=== PATIENT | female | born 1960 | race Caucasian/White ===

== ENCOUNTER 2020-05-25 10:47 | Inpatient (IN) | payer SELFPAY ==
--- NOTE | 2020-05-25 14:43 | RAD REPORT ---
EXAM DESCRIPTION: RAD - Chest Single View - 05/25/2020 2:16 pm CLINICAL HISTORY: CONGESTION COMPARISON: Portable May 2011 TECHNIQUE: AP portable chest image was obtained 05/25/2020 2:16 pm . FINDINGS: Chronic interstitial pattern similar to comparison. Calcified granulomas are stable. Overl stacia soft tissues cause costophrenic angle blunting. Heart and vasculature are normal. No measurable pleural effusion and no pneumothorax. No acute bony abnormality seen. No acute aortic findings suspec priscilla. IMPRESSION: No acute cardiopulmonary process. Chronic interstitial pattern matches comparison.
[2020-05-25 15:08] LABS: Sodium Level 140 mmol/L (136-145); Troponin (Emerg Dept Use Only) < 0.02 ng/mL (0.0-0.045)
--- NOTE | 2020-05-25 16:00 | RAD REPORT ---
EXAM DESCRIPTION: CT - Abdomen Pelvis Wo Contrast - 05/25/2020 3:34 pm CLINICAL HISTORY: ABD PAIN COMPARISON: CT ABD PELVIS W CONTRAST dated 06/08/2011 TECHNIQUE: Axial [address] imaging of the abdomen and pelvis was performed without IV contrast. No IV contrast was given because of allergy, abnormal renal function, patient refusal or physician re quest. No oral contrast given. All CT scans are performed using dose optimization technique as appropriate and may include automated exposure control or mA/KV adjustment according to patient size. FINDINGS: No suspicious findings in the lung bases. There is been a marked change to the abdomen since the the far remote 2011 study. Liver has a promine nt, lobulated capsule contour. No focal liver lesion identified. Spleen has enlarged. There are no fo jennie splenic lesions identifiable. Gallbladder is distended. No gallstones seen though stones can be o ccult. There is no dilatation of the biliary tree. No pancreatic mass or peripancreatic acute finding . No evaluation can be made of the portal vein on a noncontrast study. No hydronephrosis or suspicious renal mass. No significant adrenal finding. Isodense renal masses an d pyelonephritis cannot be excluded in the absence of IV contrast. Urinary bladder is tightly contrac priscilla limiting assessment. Normal sized uterus for age. There is air density in the vaginal wall near the cervix. A few punctate air densities are present localizing to the anterior uterus near the endometrium -myometrium interfa ce. No gastric dilatation or wall thickening. No dilated large or small bowel loops. There are several sm all bowel loops that show wall thickening or edema is believed to be part of the liver dysfunction. M ultiple paraesophageal varices are present. No free intraperitoneal air and no pneumatosis. Moderate ascites is present in the abdomen. There is a congestion and edematous appearance to all the peritoneal fat and subcutaneous fatty tissues. No ma ss or bulky lymphadenopathy. Minimal periumbilical hernia present. Disc and bony degenerative changes are present. Dense vascular calcifications are present. Infrarenal aorta is dilated to 3.1 cm. No displaced calcifications. IMPRESSION: Cirrhotic liver changes with splenomegaly, moderate ascites and multiple abdominal varic es. No abnormal stool volume. Several small bowel loops show wall thickening that is probably a systemic response to the liver disease. Patient has focal air density in the deep vaginal vault near the cervix and a few punctate air densit ies within the uterus. Source of the air is uncertain. Patient may have incompetent cervix and this i s physiologic air via the vaginal vault. No history to indicate an acute uterine infectious process. No evidence for cervical or uterine malignancy. Infrarenal abdominal aortic aneurysm to 3.1 cm in diameter.
--- NOTE | 2020-05-25 17:09 | ER ---
Nurse's Notes [facility] Name: Tania Aguirre Age: 59 yrs Sex: Female : 1960 Arrival Date: 05/25/2020 Time: 10:48 Bed 26 Private MD: Diagnosis: Acute kidney failure;Other and unspecified cirrhosis of liver Presentation: 05/25 11:26 Chief complaint: Patient states: my heart feels like something is pinching it and iw sometimes it feels something is pushing it for past week, stomach became distended 2 weeks ago, hx of pancreatitis and hiatal hernia, no vomiting, can't pee or poop for past two weeks, only going a little at time, also has leg swelling in left leg X 2 weeks. Initial Sepsis Screen: Does the patient meet any 2 criteria? No. Patient's initial sepsis screen is negative. Does the patient have a suspected source of infection? No. Patient's initial sepsis screen is negative. Risk Assessment: Do you want to hurt yourself or someone else? Patient reports no desire to harm self or others. 11:26 Method Of Arrival: Ambulatory iw 11:26 Acuity: NAHID 2 iw 11:30 Coronavirus screen: At this time, the client does not indicate any symptoms associated iw with coronavirus-19. Ebola Screen: Patient negative for fever greater than or equal to 101.5 degrees Fahrenheit, and additional compatible Ebola Virus Disease symptoms Patient denies exposure to infectious person. Patient denies travel to an Ebola-affected area in the 21 days before illness onset. No symptoms or risks identified at this time. Onset of symptoms was May 10, 2020. Historical: - Allergies: 11:30 No Known Allergies; iw - Home Meds: 11:30 None [Active]; iw - PMHx: 11:30 chronic bronchitis; 6 lesions on lungs; iw - PSHx: 11:30 None; iw - Immunization history:: Adult Immunizations not up to date. - Social history:: Smoking status: Patient reports the use of cigarette tobacco products, smokes one-half pack cigarettes per day. - Family history:: not pertinent. Screenin:17 Abuse screen: Denies threats or abuse. Denies injuries from another. Abuse screen:. zb Nutritional screening: No deficits noted. Tuberculosis screening: No symptoms or risk factors identified. Fall Risk None identified. Assessment: 12:30 General: Appears uncomfortable, Behavior is calm, cooperative, appropriate for age, zb Reports feeling ill for > 3 days, fatigue for >3 days. Pain: Complains of pain in abdomen Pain does not radiate. Pain began 1 mth ago. Neuro: Level of Consciousness is awake, alert, obeys commands, Oriented to person, place, time, situation. Cardiovascular: Reports nausea, shortness of breath, Heart tones S1 S2 Murmur present Capillary refill < 3 seconds in bilateral fingers Patient's skin is warm and dry. Pulses are all present. Edema is 3+ to left ankle, left foot, left toes, right ankle, right foot and right toes pitting to left midcalf, left ankle, left foot, left toes, right midcalf, right ankle, right foot and right toes. Respiratory: Reports shortness of breath at rest on exertion cough that is hacking, persistent Airway is patent Respiratory effort is even, unlabored, Respiratory pattern is regular, symmetrical, Breath sounds with rhonchi bilaterally. Breath sounds with wheezes bilaterally. Onset: The symptoms/episode began/occurred at an unknown time. the patient has moderate shortness of breath. GI: Abdomen is round distended, noted to have ascites, Stools are reported to be loose, Bowel sounds present X 4 quads. hyperactive in right upper quadrant, left upper quadrant, right lower quadrant and left lower quadrant Reports lower abdominal pain, upper abdominal pain, bloating. : Reports inability to void, urgency, urinary frequency. EENT: No signs and/or symptoms were reported regarding the EENT system. Derm: Skin is intact, Skin is dry, Skin is normal, Skin temperature is warm. Musculoskeletal: Circulation, motion, and sensation intact. Range of motion: intact in all extremities. 13:30 Reassessment: Patient appears in no apparent distress at this time. Patient and/or zb family updated on plan of care and expected duration. Pain level reassessed. Patient is alert, oriented x 3, equal unlabored respirations, skin warm/dry/pink. pt waiting IV for c-scan. patient has a cough but is up ad jf. 14:30 Reassessment: Patient appears in no apparent distress at this time. Patient and/or zb family updated on plan of care and expected duration. Pain level reassessed. Patient is alert, oriented x 3, equal unlabored respirations, skin warm/dry/pink. pt lying in bed awaiting results. 15:30 Reassessment: Patient appears in no apparent distress at this time. Patient and/or zb family updated on plan of care and expected duration. Pain level reassessed. Patient is alert, oriented x 3, equal unlabored respirations, skin warm/dry/pink. no changes at this time. patient reposition. 16:18 Reassessment: patient ambulated to restroom. zb 17:00 Reassessment: Patient appears in no apparent distress at this time. Patient and/or zb family updated on plan of care and expected duration. Pain level reassessed. pt c/o pain in ovaries. notified PCP. medication given. 18:00 Reassessment: Patient appears in no apparent distress at this time. Patient and/or zb family updated on plan of care and expected duration. Pain level reassessed. discussed plan of care w/ patient. 19:00 Reassessment: Patient appears in no apparent distress at this time. Patient and/or zb family updated on plan of care and expected duration. Pain level reassessed. Patient is alert, oriented x 3, equal unlabored respirations, skin warm/dry/pink. 20:00 Reassessment: Patient appears in no apparent distress at this time. Patient and/or zb family updated on plan of care and expected duration. Pain level reassessed. Patient is alert, oriented x 3, equal unlabored respirations, skin warm/dry/pink. 21:00 Reassessment: Patient appears in no apparent distress at this time. Patient and/or zb family updated on plan of care and expected duration. Pain level reassessed. Patient is alert, oriented x 3, equal unlabored respirations, skin warm/dry/pink. pt given food. Vital Signs: 11:30 BP 173 / 62; Pulse 87; Resp 20; Temp 98.7; Pulse Ox 95% on R/A; Weight 102.06 kg; iw Height 5 ft. 7 in. (170.18 cm); Pain 7/10; 12:30 BP 164 / 70; Pulse 83; Resp 20; Pulse Ox 93% on R/A; zb 13:00 BP 132 / 80; Pulse 83; Resp 21; Pulse Ox 92% on R/A; zb 14:00 BP 161 / 69; Pulse 74; Resp 20; Pulse Ox 96% on 2 lpm NC; zb 15:00 BP 163 / 65; Pulse 73; Resp 22; Pulse Ox 97% on 2 lpm NC; zb 16:00 BP 166 / 67; Pulse 82; Resp 20; Pulse Ox 94% on 2 lpm NC; zb 17:00 BP 143 / 55; Pulse 83; Resp 20; Pulse Ox 100% on 2 lpm NC; zb 18:00 BP 153 / 59; Pulse 79; Resp 20; Pulse Ox 96% on 2 lpm NC; zb 19:00 BP 148 / 69; Pulse 75; Resp 20; Pulse Ox 96% 2 lpm ; zb 20:00 BP 136 / 56; Pulse 72; Resp 21; Pulse Ox 95% on 2 lpm NC; zb 21:00 BP 166 / 88; Pulse 89; Resp 16; Pulse Ox 98% on 2 lpm NC; zb 11:30 Body Mass Index 35.24 (102.06 kg, 170.18 cm) iw ED Course: 10:48 Patient arrived in ED. as 11:28 Triage completed. iw 11:30 Arm band placed on. iw 12:30 Komal Negrete MD is Attending Physician. ma2 12:37 Oumou Astudillo RN is Primary Nurse. zb 12:45 Missed attempt(s): 22 gauge in left antecubital area. Oxygen administration via nasal zb cannula \T\ 2L/min. 14:16 XRAY Chest (1 view) In Process Unspecified. EDMS 14:17 Patient has correct armband on for positive identification. bankruptcy attorney on. Pulse zb ox on. NIBP on. 14:35 Initial lab(s) drawn, by md, sent to lab. Inserted saline lock: 22 gauge in right aa5 antecubital area, using aseptic technique. Blood collected. 15:33 Abdomen In Process Unspecified. EDMS 17:08 Gabriele Orellana MD is Hospitalizing Provider. ma2 21:39 No provider procedures requiring assistance completed. Patient admitted, IV remains in zb place. Administered Medications: 17:35 Drug: [place] (7.5 mg-325 mg) 1 tabs Route: PO; zb 18:56 Follow up: Response: No adverse reaction; Pain is decreased; RASS: Alert and Calm (0) zb Outcome: 17:08 Decision to Hospitalize by Provider. ma2 21:39 Admitted to Med/surg accompanied by tech, room 210, with oxygen, with chart, Report zb called to [facility] [place] 21:39 Condition: stable 21:39 Instructed on the need for admit. 21:59 Patient left the ED. zb Signatures: Dispatcher [employer] Milka Gordon Irene, RN RN iw Calderon, Audri, RN RN aa5 Komal Negrete MD MD ma2 Oumou Astudillo RN RN zb
--- NOTE | 2020-05-25 17:09 | EDPHYS ---
Physician Documentation [facility] Name: Tania Aguirre Age: 59 yrs Sex: Female : 1960 Arrival Date: 05/25/2020 Time: 10:48 Bed 26 Private MD: ED Physician Komal Negrete HPI: 05/25 15:48 This 59 yrs old Female presents to ER via Ambulatory with complaints of Chest ma2 Pressure, Abdominal Swelling, Headache, Constipation. 15:48 The patient or guardian reports chest pain that is located primarily in the substernal ma2 area. Onset: gradually, 2 week(s) ago. Associated signs and symptoms: Pertinent negatives: diaphoresis, headache, lower extremity swelling, nausea. Severity of pain: At its worst the pain was moderate in the emergency department the pain is unchanged. The patient has not experienced similar symptoms in the past. Historical: - Allergies: 11:30 No Known Allergies; iw - Home Meds: 11:30 None [Active]; iw - PMHx: 11:30 chronic bronchitis; 6 lesions on lungs; iw - PSHx: 11:30 None; iw - Immunization history:: Adult Immunizations not up to date. - Social history:: Smoking status: Patient reports the use of cigarette tobacco products, smokes one-half pack cigarettes per day. - Family history:: not pertinent. ROS: 15:48 Constitutional: Negative for fever, chills, and weight loss. ma2 15:48 Abdomen/GI: Positive for constipation, abd swelling. 15:48 All other systems are negative. Exam: 15:48 Constitutional: This is a well developed, well nourished patient who is awake, alert, ma2 and in no acute distress. ENT: Nares patent. No nasal discharge, no septal abnormalities noted. Tympanic membranes are normal and external auditory canals are clear. Oropharynx with no redness, swelling, or masses, exudates, or evidence of obstruction, uvula midline. Mucous membranes moist. Neck: Trachea midline, no thyromegaly or masses palpated, and no cervical lymphadenopathy. Supple, full range of motion without nuchal rigidity, or vertebral point tenderness. No Meningismus. Chest/axilla: Normal chest wall appearance and motion. Nontender with no deformity. No lesions are appreciated. Cardiovascular: Regular rate and rhythm with a normal S1 and S2. No gallops, murmurs, or rubs. Normal PMI, no JVD. No pulse deficits. Respiratory: Lungs have equal breath sounds bilaterally, clear to auscultation and percussion. No rales, rhonchi or wheezes noted. No increased work of breathing, no retractions or nasal flaring. Abdomen/GI: abd is destended, yet soft, non-tender, with normal bowel sounds. No tympany. No guarding or rebound. No evidence of tenderness throughout. Skin: Warm, dry with normal turgor. Normal color with no rashes, no lesions, and no evidence of cellulitis. MS/ Extremity: Pulses equal, no cyanosis. Neurovascular intact. Full, normal range of motion. Neuro: Awake and alert, GCS 15, oriented to person, place, time, and situation. Cranial nerves II-XII grossly intact. Motor strength 5/5 in all extremities. Sensory grossly intact. Cerebellar exam normal. Normal gait. Psych: Awake, alert, with orientation to person, place and time. Behavior, mood, and affect are within normal limits. Vital Signs: 11:30 BP 173 / 62; Pulse 87; Resp 20; Temp 98.7; Pulse Ox 95% on R/A; Weight 102.06 kg; iw Height 5 ft. 7 in. (170.18 cm); Pain 7/10; 12:30 BP 164 / 70; Pulse 83; Resp 20; Pulse Ox 93% on R/A; zb 13:00 BP 132 / 80; Pulse 83; Resp 21; Pulse Ox 92% on R/A; zb 14:00 BP 161 / 69; Pulse 74; Resp 20; Pulse Ox 96% on 2 lpm NC; zb 15:00 BP 163 / 65; Pulse 73; Resp 22; Pulse Ox 97% on 2 lpm NC; zb 16:00 BP 166 / 67; Pulse 82; Resp 20; Pulse Ox 94% on 2 lpm NC; zb 17:00 BP 143 / 55; Pulse 83; Resp 20; Pulse Ox 100% on 2 lpm NC; zb 18:00 BP 153 / 59; Pulse 79; Resp 20; Pulse Ox 96% on 2 lpm NC; zb 19:00 BP 148 / 69; Pulse 75; Resp 20; Pulse Ox 96% 2 lpm ; zb 20:00 BP 136 / 56; Pulse 72; Resp 21; Pulse Ox 95% on 2 lpm NC; zb 21:00 BP 166 / 88; Pulse 89; Resp 16; Pulse Ox 98% on 2 lpm NC; zb 11:30 Body Mass Index 35.24 (102.06 kg, 170.18 cm) iw MDM: 12:31 Patient medically screened. nc2 15:48 Differential diagnosis: abnormal EKG, congestive heart failure gastroesophageal reflux nc2 disease (GERD), pancreatitis. 17:06 The patient was not given aspirin in the Emergency Department. Data reviewed: vital [facility] signs, nurses notes, diagnostic data from outside facility. Counseling: I had a detailed discussion with the patient and/or guardian regarding: the historical points, exam findings, and any diagnostic results supporting the discharge/admit diagnosis, the presence of at least one elevated blood pressure reading (>120/80) during this emergency department visit, the need for further work-up and treatment in the hospital. 05/25 12:33 Order name: Basic Metabolic Panel [facility] 05/25 12:33 Order name: CBC with Diff [facility] 05/25 12:33 Order name: LFT's [facility] 05/25 12:33 Order name: Magnesium [facility] 05/25 12:33 Order name: NT PRO-BNP [facility] 05/25 12:33 Order name: PT-INR [facility] 05/25 12:33 Order name: XRAY Chest (1 view); Complete Time: 16:41 [facility] 05/25 12:33 Order name: Lipase [facility] 05/25 12:44 Order name: Troponin (Emerg Dept Use Only) [facility] 05/25 15:17 Order name: Abdomen ; Complete Time: 16:41 [facility] 05/25 17:26 Order name: COVID-19 : Document "Date of Symptom Onset" if Symptomatic. 05/25 20:51 Order name: SARS-COV-2 RT PCR [facility] 05/25 12:33 Order name: EKG; Complete Time: 12:42 [facility] 05/25 12:33 Order name: Cardiac monitoring; Complete Time: 14:39 [facility] 05/25 12:33 Order name: EKG - Nurse/Tech; Complete Time: 13:28 [facility] 05/25 12:33 Order name: IV Saline Lock; Complete Time: 14:00 [facility] 05/25 12:33 Order name: Labs collected and sent; Complete Time: 14:00 [facility] 05/25 12:33 Order name: O2 Per Protocol; Complete Time: 14:39 [facility] 05/25 12:33 Order name: O2 Sat Monitoring; Complete Time: 14:39 [facility] 05/25 17:16 Order name: [place]; Complete Time: 18:57 [facility] 05/25 17:18 Order name: CONS Physician Consult [facility]CO Administered Medications: 17:35 Drug: [place] (7.5 mg-325 mg) 1 tabs Route: PO; zb 18:56 Follow up: Response: No adverse reaction; Pain is decreased; RASS: Alert and Calm (0) zb Disposition: 05/25/20 17:08 Hospitalization ordered by Gabriele Orellana for Inpatient Admission. Preliminary diagnosis are Acute kidney failure, Other and unspecified cirrhosis of liver. - Bed requested for Telemetry/MedSurg (Inpatient). - Status is Inpatient Admission. zb - Condition is Stable. - Problem is new. - Symptoms are unchanged. Signatures: Dispatcher [employer] [facility] Maria Luisa Gates RN RN dw Williams, Irene, RN RN iw Alzahri, Mohammad, MD MD [facility] Oumou Astudillo RN RN zb Corrections: (The following items were deleted from the chart) 15:17 12:42 Abdomen Pelvis W Con+CT.RAD.BRZ ordered. [facility] 21:06 17:08 Hospitalization Ordered by Gabriele Orellana MD for Inpatient Admission. Preliminary dw diagnosis is Acute kidney failure; Other and unspecified cirrhosis of liver. Bed requested for Telemetry/MedSurg (Inpatient). Status is Inpatient Admission. Condition is Stable. Problem is new. Symptoms are unchanged. ma2 21:59 21:06 05/25/2020 17:08 Hospitalization Ordered by Gabriele Orellana MD for Inpatient zb Admission. Preliminary diagnosis is Acute kidney failure; Other and unspecified cirrhosis of liver. Bed requested for Telemetry/MedSurg (Inpatient). Status is Inpatient Admission. Condition is Stable. Problem is new. Symptoms are unchanged. dw
--- NOTE | 2020-05-25 17:39 | P.HP ---
Certification for Inpatient Patient admitted to: Inpatient With expected LOS: >2 Midnights Practitioner: I am a practitioner with admitting privileges, knowledge of patient current condition, hospital course, and medical plan of care. Services: Services provided to patient in accordance with Admission requirements found in Title 42 Section 412.3 of the Code of Federal Regulations Patient History Date of Service: 05/25/20 Reason for admission: Acute renal failure, ascites History of Present Illness: 59yo F, PMH: HTN who presents to the ED the with few weeks of progressive wor sening abdominal swelling, lower extremity swelling, and decreased urine output. The patient denies any other past medical history, but has not seen a physician in many years. The she also reports several months of some chest pressure when lying flat, causing her to sleep on her side/slightly at an incline. The she reports minimal urine output, states that she did not fill the urine specimen ke pt within 1 day. She denies any fevers, no foul smell/ordered her urine, no blood. The she also reports she had 2 weeks of vaginal/uterine bleeding approximately 3-4 weeks ago, requiring ~3 regular pads / day. Before that, her LMP was ~10yrs ago. Has been having "ovary pain" described as pelvic cramping pains similar to when she would get her periods. Workup in ED notable for platelets 160, creatinine 3.4, INR: 0.97, BNP: 55286, negative troponin, lipase: 67. CXR: Negative for acute process. CT abdomen/pelvis: The new finding of cirrhotic liver changes with splenomegaly, moderate ascites, multiple abdominal varices. Several small bowel loops show wall thickening no surprise systemic response of liver disease. Focal air density in the vaginal vault and cervix and a few punctate care densities within the uterus. Allergies No Known Allergies Allergy (Unverified 06/08/11 11:57) Home Medications: None 06/08/11 Pantoprazole Sodium [Protonix] 40 mg PO BID #0 tablet. 06/10/11 - Past Medical/Surgical History -: HTN Past Surgical History: Patient denies surgical history - Family History Family History: Reviewed- Non-Contributory - Social History Smoking Status: Current every day smoker Alcohol use: No CD- Drugs: No Caffeine use: Yes Place of Residence: Home Review of Systems 10-point ROS is otherwise unremarkable Physical Examination - Studies Laboratory Data (last 24 hrs) 05/25/20 14:30: PT 11.4, INR 0.97 05/25/20 14:30: WBC 5.90, Hgb 12.9, Hct 39.4, Plt Count 160 05/25/20 14:30: Sodium 140, Potassium 4.3, BUN 56 H, Creatinine 3.42 H, Glucose 109 H, Magnesium 2.1, Total Bilirubin 0.4, AST 22, ALT 17, Alkaline Phosphatase 118 H, Lipase 67 L Assessment and Plan - Advance Directives Does patient have a Living Will: No Does patient have a Durable POA for Healthcare: No Physician Review Additional Text: Physical Exam Gen: NAD, laying on side HEENT: very mild scleral icterus CV: RRR, no murmur/rub Pulm: diminished air bilaterally, b/l expiratory wheeze, on RA Abd: soft, distended, +ascites, nontender Ext: 2+ edema bilaterally, no tenderness Neuro: AAOx3, str 5/5 bilateral upper/lower extremities Problem List: Acute renal failure Liver Cirrhosis Ascites Lower extremity edema Uterine/Vaginal bleed elevated BNP HTN -very low UOP over past 2-3 weeks -new Ascites / cirrhosis findings, concern for hepatorenal syndrome -no GI director of manufacturing operations -consult nephrology for acute renal failure -will obtain U/S for further eval - liver / pelvic -ordered paracentesis for tomorrow, LDH, glucose, cytology, Gram stain/culture -patient afebrile, no abdominal pain, do not suspect SBP at this time VTE: SCDs for now, recent bleed, low platelets, cirrhosis Code: full Dispo: anticipate dc home in 48-72hrs pending further evaluation / improvement Time Spent Managing Pts Care (In Minutes): 70
[2020-05-25 17:44] LABS: Protime INR 1.64; RBC Red Blood Cell Count 4.07 M/uL (3.86-4.86)
[2020-05-25 17:45] LABS: Absolute Lymphocytes (CBC) 1.3 K/uL (0.7-4.9); Basophils % 0.7 % (0-1.3); Hematocrit 39.5 % (36.0-45.0); Lymphocytes % 14.8 % (15.3-44.8); MPV 8.4 fL (7.6-11.3)
[2020-05-25] MEDS ORDERED: HYDROCODONE/APAP 7.5/325 MG TAB ONE (17:45)
[2020-05-25 17:59] LABS: Potassium 3.7 mmol/L (3.5-5.1)
[2020-05-25 18:00] LABS: ALT/SGPT 52 U/L (12-78); AST/SGOT 113 U/L (15-37); Alkaline Phosphatase 175 U/L (45-117); BUN Blood Urea Nitrogen 8 mg/dL (7-18); Bicarbonate 28 mmol/L (21-32); Bilirubin Direct 1.7 mg/dL (0-0.2); Bilirubin Total 3.2 mg/dL (0.2-1.0); Glucose Level 87 mg/dL (74-106); Protein, Total 7.9 g/dL (6.4-8.2)
[2020-05-25 18:01] LABS: Albumin 2.2 g/dL (3.4-5.0); Lipase 98 U/L (73-393); NT PRO-BNP 219 pg/mL (<125)
[2020-05-25 22:08] VITALS: BMI 37.2
[2020-05-25 23:14] LABS: Thyroid Stimulating Hormone 1.88 uIU/mL (0.360-3.740)
[2020-05-26 01:14] LABS: Urine Appearance CLEAR; Urine Blood 2+ (NEG); Urine Color ORANGE; Urine Glucose NEGATIVE (NEG); Urine Protein 1+ (NEG); Urine Specific Gravity >=1.030 (1.005-1.030)
[2020-05-26 01:32] LABS: Urine Microscopic Reflex ORDER UMIC
[2020-05-26 01:58] LABS: Urine Bilirubin 1+ (NEG)
[2020-05-26 02:42] LABS: Urine Bacteria <20 /HPF (<20); Urine Mucus 2+ /HPF (NONE SEEN); Urine RBC >50 /HPF (NONE SEEN); Urine Urothelial Cells <5 /HPF (NONE SEEN)
[2020-05-26 05:48] LABS: Absolute Lymphocytes (CBC) 1.2 K/uL (0.7-4.9); Lymphocytes % 15.7 % (15.3-44.8); MPV 8.2 fL (7.6-11.3); RBC Red Blood Cell Count 3.67 M/uL (3.86-4.86)
[2020-05-26 06:03] LABS: Protime INR 1.69
[2020-05-26 06:04] LABS: ALT/SGPT 46 U/L (12-78); AST/SGOT 94 U/L (15-37); Alkaline Phosphatase 162 U/L (45-117); BUN Blood Urea Nitrogen 10 mg/dL (7-18); Bicarbonate 28 mmol/L (21-32); Glucose Level 85 mg/dL (74-106); HDL Cholesterol 26 mg/dL (40-60); LDL Cholesterol, Calculated 106 (<130); Phosphorus 3.5 mg/dL (2.5-4.9); Potassium 3.5 mmol/L (3.5-5.1); Protein, Total 7.1 g/dL (6.4-8.2); Sodium Level 140 mmol/L (136-145)
--- NOTE | 2020-05-26 08:17 | P.CNS ---
Date of Consult: 05/26/20 Reason for Consult: Oliguria Requesting Physician: Gabriele Orellana Chief Complaint: Acute renal failure, ascites History of Present Illness: 59yo F, PMH: HTN who presents to the ED the with few weeks of progressive worsening abdominal swelling, lower extremity swelling, and decreased urine output. The patient denies any other past medical history, but has not seen a physician in many years. The she also reports several months of some chest pressure when lying flat, causing her to sleep on her side/slightly at an incline. The she reports minimal urine output, states that she did not fill the urine specimen kept within 1 day. She denies any fevers, no foul smell/ordered her urine, no blood. The she also reports she had 2 weeks of vaginal/uterine bleeding approximately 3-4 weeks ago, requiring ~3 regular pads / day. Before that, her LMP was ~10yrs ago. Has been having "ovary pain" described as pelvic cramping pains similar to when she would get her periods. 15:48 This 59 yrs old Female presents to ER via Ambulatory with complaints of Chest ma2 Pressure, Abdominal Swelling, Headache, Constipation. 15:48 The patient or guardian reports chest pain that is located primarily in the substernal ma2 area. Onset: gradually, 2 week(s) ago. Associated signs and symptoms: Pertinent negatives: diaphoresis, headache, lower extremity swelling, nausea. Severity of pain: At its worst the pain was moderate in the emergency department the pain is unchanged. The patient has not experienced similar symptoms in the past. Allergies No Known Allergies Allergy (Verified 05/25/20 22:08) Home medications list reviewed: Yes Home Medications: NK [No Home Meds] 05/25/20 - Past Medical/Surgical History Diabetic: No -: HTN -: chronic bronchitis -: none - Social History Smoking Status: Current every day smoker Alcohol use: No CD- Drugs: No Caffeine use: Yes Place of Residence: Home Review of Systems 10-point ROS is otherwise unremarkable General: Weakness, Malaise Respiratory: SOB with Excertion Cardiovascular: Edema Neurological: Weakness Physical Examination Temp Pulse Resp BP Pulse Ox 98.1 F 83 16 134/61 92 05/26/20 04:00 05/26/20 04:00 05/26/20 04:00 05/26/20 04:00 05/26/20 04:00 General: In no apparent distress, Oriented x3, Cooperative HEENT: Atraumatic Neck: Supple Respiratory: Diminished Cardiovascular: Regular rate/rhythm, Edema Gastrointestinal: No guarding, Distended Musculoskeletal: No clubbing Integumentary: No rashes, No cyanosis Neurological: Normal speech Laboratory Data (last 24 hrs) 05/25/20 14:30: PT 19.4 H, INR 1.64 05/25/20 14:30: WBC 8.70, Hgb 13.1, Hct 39.5, Plt Count 126 L 05/25/20 14:30: Sodium 140, Potassium 3.7, BUN 8, Creatinine 0.40 L, Glucose 87, Magnesium 2.0, Total Bilirubin 3.2 H, AST 113 H, ALT 52, Alkaline Phosphatase 175 H, Lipase 98 Imagings Data: EXAM DESCRIPTION: CT - Abdomen Pelvis Wo Contrast - 05/25/2020 3:34 pm CLINICAL HISTORY: ABD PAIN COMPARISON: CT ABD PELVIS W CONTRAST dated 06/08/2011 TECHNIQUE: Axial [address] imaging of the abdomen and pelvis was performed without IV contrast. No IV contrast was given because of allergy, abnormal renal function, patient refusal or physician request. No oral contrast given. All CT scans are performed using dose optimization technique as appropriate and may include automated exposure control or mA/KV adjustment according to patient size. FINDINGS: No suspicious findings in the lung bases. There is been a marked change to the abdomen since the the far remote 2011 study. Liver has a prominent, lobulated capsule contour. No focal liver lesion identified. Spleen has enlarged. There are no focal splenic lesions identifiable. Gallbladder is distended. No gallstones seen though stones can be occult. There is no dilatation of the biliary tree. No pancreatic mass or peripancreatic acute finding. No evaluation can be made of the portal vein on a noncontrast study. No hydronephrosis or suspicious renal mass. No significant adrenal finding. Isodense renal masses and pyelonephritis cannot be excluded in the absence of IV contrast. Urinary bladder is tightly contracted limiting assessment. Normal sized uterus for age. There is air density in the vaginal wall near the cervix. A few punctate air densities are present localizing to the anterior uterus near the endometrium -myometrium interface. No gastric dilatation or wall thickening. No dilated large or small bowel loops. There are several small bowel loops that show wall thickening or edema is believed to be part of the liver dysfunction. 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 No free intraperitoneal air and no pneumatosis. Moderate ascites is present in the abdomen. There is a congestion and edematous appearance to all the peritoneal fat and subcutaneous fatty tissues. No mass or bulky lymphadenopathy. Minimal periumbilical hernia present. Disc and bony degenerative changes are present. Dense vascular calcifications are present. Infrarenal aorta is dilated to 3.1 cm. No displaced calcifications. IMPRESSION: Cirrhotic liver changes with splenomegaly, moderate ascites and multiple abdominal varices. No abnormal stool volume. Several small bowel loops show wall thickening that is probably a systemic response to the liver disease. Patient has focal air density in the deep vaginal vault near the cervix and a few punctate air densities within the uterus. Source of the air is uncertain. Patient may have incompetent cervix and this is physiologic air via the vaginal vault. No history to indicate an acute uterine infectious process. No evidence for cervical or uterine malignancy. Infrarenal abdominal aortic aneurysm to 3.1 cm in diameter. EXAM DESCRIPTION: RAD - Chest Single View - 05/25/2020 2:16 pm CLINICAL HISTORY: CONGESTION COMPARISON: Portable May 2011 TECHNIQUE: AP portable chest image was obtained 05/25/2020 2:16 pm . FINDINGS: Chronic interstitial pattern similar to comparison. Calcified granulomas are stable. Overlying soft tissues cause costophrenic angle blunting. Heart and vasculature are normal. No measurable pleural effusion and no pneumothorax. No acute bony abnormality seen. No acute aortic findings suspected. IMPRESSION: No acute cardiopulmonary process. Chronic interstitial pattern matches comparison. Conclusions/Impression: A/ Oliguria Proteinuria Hematuria Hypokalemia Hypocalcemia HTN LE Edema Moderate malnutrition Liver cirrhosis with ascites P/ Continue the current POC and Medications. Start furosemide 20 IV q6h. Start spironolactone 25mg BID. IV Albumin as needed for hypotension. Give oral potassium. Start Vitamin D. Consider Lactulose as needed. Continue vaughn catheter. No NSAIDs. AM labs. Daily weight. Thank you kindly for the consultation. Case reviewed with Dr. Orellana
[2020-05-26] MEDS ORDERED: POTASSIUM CL SA 10 MEQ TAB PO ONE (08:25)
[2020-05-26] MEDS: CEFTRIAXONE/SWI 1gm 1 GM/10 ML SYR IV SCH (08:54)
[2020-05-26] MEDS ORDERED: INFLUENZA VACCINE (for 3y+) 0.5 ML DOSE IMVAC ONE (09:00)
--- NOTE | 2020-05-26 10:57 | P.PN ---
Subjective Date of Service: 05/26/20 Chief Complaint: edema, ascites Subjective: Improving (swelling slightly improved, breathing unchanged, no longer having "ovary pain") Review of Systems 10-point ROS is otherwise unremarkable Physical Examination - Vital Signs Temperature: 98.6 F Blood Pressure: 138/64 Pulse: 82 Respirations: 20 Pulse Ox (%): 90 - Studies Laboratory Data (last 24 hrs) 05/25/20 14:30: PT 19.4 H, INR 1.64 05/25/20 14:30: WBC 8.70, Hgb 13.1, Hct 39.5, Plt Count 126 L 05/25/20 14:30: Sodium 140, Potassium 3.7, BUN 8, Creatinine 0.40 L, Glucose 87, Magnesium 2.0, Total Bilirubin 3.2 H, AST 113 H, ALT 52, Alkaline Phosphatase 175 H, Lipase 98 Assessment & Plan Physician Review Additional Text: Physical Exam Gen: NAD HEENT: mild scleral icterus CV: RRR, no murmur/rub Pulm: diminished air bilaterally, b/l expiratory wheeze, on RA, +nonproductive cough Abd: soft, distended, +ascites, nontender Ext: 1-2+ edema bilaterally to thighgs, no tenderness Neuro: AAOx3, str 5/5 bilateral upper/lower extremities Problem List: Oliguria UTI Liver Cirrhosis with ascites Lower extremity edema Uterine/Vaginal bleed acute COPD exacerbation HTN -apparently labs yesterday were incorrectly labeled, and were fixed. Cr was 0.4, not 3.4 yesterday -having oliguria, vaughn placed for strict I/O's, only with 180ml overnight; nephrology consulted -urine concerning for UTI, started rocephin -new Ascites / cirrhosis findings, concern for hepatitis (remote history of IV drug use), pt denies alcohol use; hepatitis panel ordered. -U/S for further eval - liver / pelvic -unable to get paracentesis today, reported not enough fluid -patient afebrile, no abdominal pain, do not suspect SBP at this time -patient continues with wheeze, cough, and shortness of breath, but doing ok on RA. no formal diagnosis, but consistent with mild, acute COPD exacerbation, will start steroids VTE: SCDs for now, recent bleed, low platelets, cirrhosis Code: full Dispo: anticipate dc home in 24hrs pending further evaluation / improvement Time Spent Managing Pts Care (In Minutes): 35
[2020-05-26] MEDS: VITAMIN D 5,000 UNIT CAP PO SCH (11:05)
[2020-05-26] MEDS: METHYLPREDNISOLONE 40 MG INJ IV SCH ×2 (11:05→20:52)
[2020-05-26] MEDS: SPIRONOLACTONE 25 MG TABLET PO SCH ×2 (11:06→20:52)
[2020-05-26] MEDS: CALCITROL 0.25 MCG CAP PO SCH (11:06)
[2020-05-26] MEDS: FUROSEMIDE 20 MG/ 2ML VIAL IV SCH ×3 (11:06→20:51)
[2020-05-26] MEDS ORDERED: ALBUTEROL 2.5 MG/3 ML NEB SOL NEB PRN (11:07)
--- NOTE | 2020-05-26 11:19 | RAD REPORT ---
EXAM DESCRIPTION: US - Abdomen Exam Complete - 05/26/2020 10:11 am CLINICAL HISTORY: Abdominal pain. eval liver - new cirrhosis? COMPARISON: ABDOMINAL EXAM LIMITED dated 06/08/2011; Abdomen Pelvis Wo Contrast dated 05/25/2020; CT ABD PELVIS W CONTRAST dated 06/08/2011 FINDINGS: The liver is diffusely heterogenous. Nodular liver contour is seen most compatible with li noa cirrhosis. There is sonographic evidence of an irregular appearing focal lesion in the region of the left hepatic lobe measuring 2.7 x 2.7 cm. Several additional vague lesions are present superimpos ed on the background chronic liver disease pattern. Hepatic and portal veins appear patent. Gallbladder appears somewhat distended. No gallbladder stones identified. Common bile duct is normal in caliber measuring 5 millimeters. Both kidneys are normal in size, shape and echotexture. No hydronephrosis, focal lesion of concern or perinephric fluid. The spleen is mildly enlarged measuring 16 cm. The pancreas and aorta are obscured by bowel gas. The visualized aspects of the IVC are grossly normal. Mild ascites noted. IMPRESSION: Significant cirrhotic pattern is seen involving the liver with several focal liver lesio ns present suspicious for liver masses or regenerating nodules. Recommend contrast-enhanced MR liver protocol for further evaluation. Mild splenomegaly. Mild ascites.
--- NOTE | 2020-05-26 11:28 | RAD REPORT ---
EXAM DESCRIPTION: US - Pelvis Complete - 05/26/2020 10:11 am CLINICAL HISTORY: "ovary pain" recent uterine bleeding Pelvic pain. COMPARISON: No comparisons FINDINGS: The uterus is somewhat small in size. The uterus measures 5.7 x 4.9 x 3.7 cm. The endometrial stripe measures 8 mm, normal. Both ovaries were not well seen probably due to ovarian atrophy or bowel superimposition. No adnexal masses. Mild pelvic ascites. IMPRESSION: Endometrium is mildly thickened for age measuring 8 mm without evidence of polyp or mass .Hysteroscopy may be of value if clinically indicated. Neither ovary was well seen likely due to a combination of atrophy and bowel gas shadowing. Mild pelvic ascites.
--- NOTE | 2020-05-26 12:19 | EKG ---
Test Date: 2020-05-25 Test Time: 13:08:35 Drink Mixer: CLAUDIA MEASUREMENT RESULTS: Intervals: Rate: 75 VT: 148 QRSD: 94 QT: 390 QTc: 435 [place]: P: 47 VT: 148 QRS: -22 T: 80 INTERPRETIVE STATEMENTS: Normal sinus rhythm Voltage criteria for left ventricular hypertrophy Abnormal ECG Compared to ECG 06/08/2011 09:37:19 Left ventricular hypertrophy now present Atrial abnormality no longer present Electronically Signed On 05-26-20 12:15:31 CRUISE AGENT by Juvencio Cobb
[2020-05-26] MEDS: ACETAMINOPHEN 500 MG TAB PO PRN (16:32)
[2020-05-27] MEDS: FUROSEMIDE 20 MG/ 2ML VIAL IV SCH ×4 (03:51→20:42)
[2020-05-27 04:58] LABS: Urine Appearance CLEAR; Urine Bilirubin NEGATIVE (NEG); Urine Blood 2+ (NEG); Urine Color YELLOW; Urine Glucose NEGATIVE (NEG); Urine Protein NEGATIVE (NEG)
[2020-05-27 05:38] LABS: Urine Bacteria <20 /HPF (<20); Urine RBC 20-50 /HPF (NONE SEEN)
[2020-05-27] MEDS ORDERED: AZITHROMYCIN 1 GM PACKET PO SCH (06:00)
[2020-05-27 06:13] LABS: Hematocrit 36.6 % (36.0-45.0); MPV 8.2 fL (7.6-11.3); RBC Red Blood Cell Count 3.79 M/uL (3.86-4.86)
[2020-05-27 06:17] LABS: ALT/SGPT 44 U/L (12-78); AST/SGOT 79 U/L (15-37); Alkaline Phosphatase 162 U/L (45-117); BUN Blood Urea Nitrogen 10 mg/dL (7-18); Bicarbonate 32 mmol/L (21-32); Bilirubin Total 2.1 mg/dL (0.2-1.0); Glucose Level 127 mg/dL (74-106); Potassium 3.7 mmol/L (3.5-5.1); Protein, Total 7.1 g/dL (6.4-8.2); Sodium Level 139 mmol/L (136-145); Uric Acid 4.3 mg/dL (2.6-6.0)
[2020-05-27] MEDS: AZITHROMYCIN 250 MG TAB PO SCH (06:46)
[2020-05-27] MEDS ORDERED: AZITHROMYCIN 250 MG TAB ONE (06:50)
[2020-05-27 07:18] LABS: Platelet Estimate DECR; White Blood Cell Scan OK (OK)
[2020-05-27 07:19] LABS: Blood Morphology Comment NOT SEEN (NOT SEEN)
--- NOTE | 2020-05-27 08:07 | P.PN ---
Date of Service: 05/27/20 Vital Signs Temp Pulse Resp BP Pulse Ox 98.0 F 70 18 150/72 H 92 05/27/20 03:55 05/27/20 03:55 05/27/20 03:55 05/27/20 03:55 05/27/20 03:55 Medications Acetaminophen (Acetaminophen 500 Mg Tab) 500 mg PO Q4HP PRN PRN Reason: Pain scale 2-4 (Mild) Stop: 06/24/20 22:08 Last Admin: 05/26/20 16:32 Dose: 500 mg Documented by: Albuterol Sulfate (Albuterol 2.5 Mg/3 Ml Neb Patience) 2.5 mg NEB Q6H PRN PRN Reason: SHORTNESS OF BREATH Stop: 06/25/20 11:08 Azithromycin (Azithromycin 250 Mg Tab) 1,000 mg PO 1X [facility]; Protocol Stop: 06/26/20 07:01 Last Admin: 05/27/20 06:46 Dose: 1,000 mg Documented by: Calcitriol (Calcitrol 0.25 Mcg Cap) 0.5 mcg PO DAILY SANDIP Stop: 06/25/20 09:01 Last Admin: 05/26/20 11:06 Dose: 0.5 mcg Documented by: Cholecalciferol (Vitamin D 5,000 Unit Cap) 5,000 unit PO DAILY SANDIP Stop: 06/25/20 09:01 Last Admin: 05/26/20 11:05 Dose: 5,000 unit Documented by: Furosemide (Furosemide 20 Mg/ 2ml Vial) 20 mg IV Q6H SANDIP Stop: 06/25/20 09:01 Last Admin: 05/27/20 03:51 Dose: 20 mg Documented by: Ceftriaxone Sodium/Sodium Chloride (Rocephin 1 Gm/10 Ml Swi Ivp) 1 gm in 10 mls @ 600 mls/hr IV DAILY [facility]; Protocol Stop: 06/25/20 09:01 Last Admin: 05/26/20 08:54 Dose: 10 mls Documented by: Methylprednisolone Sodium Succinate (Methylprednisolone 40 Mg Inj) 40 mg IV BID SANDIP Stop: 06/25/20 09:01 Last Admin: 05/26/20 20:52 Dose: 40 mg Documented by: Sodium Chloride (Flush Normal Saline 10 Ml) 10 ml IV BID SANDIP Stop: 06/24/20 22:08 Last Admin: 05/26/20 20:52 Dose: 10 ml Documented by: Spironolactone (Spironolactone 25 Mg Tablet) 25 mg PO BID SANDIP Stop: 06/25/20 09:01 Last Admin: 05/26/20 20:52 Dose: 25 mg Documented by: Assessment/ Plan: Nephrology Feeling better. +WEAVER +Cough Cardiac stable without CP No acute events overnight. Good urine output. Vitals, medications, blood work and imaging reviewed in the chart. General: In no apparent distress, Oriented x3, Cooperative HEENT: Atraumatic Neck: Supple Respiratory: Diminished Cardiovascular: Regular rate/rhythm, Edema Gastrointestinal: No guarding, Distended Musculoskeletal: No clubbing Integumentary: No rashes, No cyanosis Neurological: Normal speech Laboratory Data (last 24 hrs) 05/25/20 14:30: PT 19.4 H, INR 1.64 05/25/20 14:30: WBC 8.70, Hgb 13.1, Hct 39.5, Plt Count 126 L 05/25/20 14:30: Sodium 140, Potassium 3.7, BUN 8, Creatinine 0.40 L, Glucose 87, Magnesium 2.0, Total Bilirubin 3.2 H, AST 113 H, ALT 52, Alkaline Phosphatase 175 H, Lipase 98 Imagings Data: EXAM DESCRIPTION: CT - Abdomen Pelvis Wo Contrast - 05/25/2020 3:34 pm CLINICAL HISTORY: ABD PAIN COMPARISON: CT ABD PELVIS W CONTRAST dated 06/08/2011 TECHNIQUE: Axial [address] imaging of the abdomen and pelvis was performed without IV contrast. No IV contrast was given because of allergy, abnormal renal function, patient refusal or physician request. No oral contrast given. All CT scans are performed using dose optimization technique as appropriate and may include automated exposure control or mA/KV adjustment according to patient size. FINDINGS: No suspicious findings in the lung bases. There is been a marked change to the abdomen since the the far remote 2011 study. Liver has a prominent, lobulated capsule contour. No focal liver lesion identified. Spleen has enlarged. There are no focal splenic lesions identifiable. Gallbladder is distended. No gallstones seen though stones can be occult. There is no dilatation of the biliary tree. No pancreatic mass or peripancreatic acute finding. No evaluation can be made of the portal vein on a noncontrast study. No hydronephrosis or suspicious renal mass. No significant adrenal finding. Isodense renal masses and pyelonephritis cannot be excluded in the absence of IV contrast. Urinary bladder is tightly contracted limiting assessment. Normal sized uterus for age. There is air density in the vaginal wall near the cervix. A few punctate air densities are present localizing to the anterior uterus near the endometrium -myometrium interface. No gastric dilatation or wall thickening. No dilated large or small bowel loops. There are several small bowel loops that show wall thickening or edema is believed to be part of the liver dysfunction. 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 No free intraperitoneal air and no pneumatosis. Moderate ascites is present in the abdomen. There is a congestion and edematous appearance to all the peritoneal fat and subcutaneous fatty tissues. No mass or bulky lymphadenopathy. Minimal periumbilical hernia present. Disc and bony degenerative changes are present. Dense vascular calcifications are present. Infrarenal aorta is dilated to 3.1 cm. No displaced calcifications. IMPRESSION: Cirrhotic liver changes with splenomegaly, moderate ascites and multiple abdominal varices. No abnormal stool volume. Several small bowel loops show wall thickening that is probably a systemic response to the liver disease. Patient has focal air density in the deep vaginal vault near the cervix and a few punctate air densities within the uterus. Source of the air is uncertain. Patient may have incompetent cervix and this is physiologic air via the vaginal vault. No history to indicate an acute uterine infectious process. No evidence for cervical or uterine malignancy. Infrarenal abdominal aortic aneurysm to 3.1 cm in diameter. EXAM DESCRIPTION: RAD - Chest Single View - 05/25/2020 2:16 pm CLINICAL HISTORY: CONGESTION COMPARISON: Portable May 2011 TECHNIQUE: AP portable chest image was obtained 05/25/2020 2:16 pm . FINDINGS: Chronic interstitial pattern similar to comparison. Calcified granulomas are stable. Overlying soft tissues cause costophrenic angle blunting. Heart and vasculature are normal. No measurable pleural effusion and no pneumothorax. No acute bony abnormality seen. No acute aortic findings suspected. IMPRESSION: No acute cardiopulmonary process. Chronic interstitial pattern matches comparison. Conclusions/Impression: A/ Oliguria Proteinuria Hematuria Hypokalemia Hypocalcemia HTN LE Edema Moderate malnutrition Liver cirrhosis with ascites P/ Continue the current POC and Medications. Continue furosemide 20 IV q6h. Continue spironolactone 25mg BID. IV Albumin as needed for hypotension. Continue Vitamin D. Remove vaughn catheter tomorrow am. No NSAIDs. AM labs. Daily weight. Case reviewed with Dr. Orellana
[2020-05-27] MEDS: CALCITROL 0.25 MCG CAP PO SCH (09:56)
[2020-05-27] MEDS: METHYLPREDNISOLONE 40 MG INJ IV SCH (09:56)
[2020-05-27] MEDS: CEFTRIAXONE/SWI 1gm 1 GM/10 ML SYR IV SCH (09:56)
[2020-05-27] MEDS: SPIRONOLACTONE 25 MG TABLET PO SCH ×2 (09:57→20:43)
[2020-05-27] MEDS: VITAMIN D 5,000 UNIT CAP PO SCH (09:57)
--- NOTE | 2020-05-27 10:52 | P.PN ---
Subjective Date of Service: 05/27/20 Chief Complaint: Acute renal failure, ascites Subjective: Improving (Reports breathing is about the same, continues with cough/slightly short of breath, feels swelling in legs has slightly improved. Denies any pain, no bleeding) Review of Systems 10-point ROS is otherwise unremarkable Physical Examination - Vital Signs Temperature: 97.9 F Blood Pressure: 133/63 Pulse: 74 Respirations: 18 Pulse Ox (%): 92 Assessment & Plan Physician Review Additional Text: Physical Exam Gen: NAD HEENT: mild scleral icterus CV: RRR, no murmur/rub Pulm: diminished air bilaterally, b/l expiratory wheeze, on RA, +nonproductive cough Abd: soft, distended, +ascites, nontender Ext: 1-2+ edema bilaterally to thighs, no tenderness, no rash Neuro: AAOx3s Problem List: Oliguria UTI, cystitis Liver Cirrhosis with ascites Lower extremity edema Uterine/Vaginal bleed acute COPD exacerbation HTN -reported 2-3 weeks of significantly low urine output. vaughn placed for strict I/O's, nephrology consulted -urine output significantly improved, on Lasix and spironolactone, continue Vaughn, still needs more diuresis -UA concern for UTI, urine culture with no growth so far, to continue Rocephin -new Ascites / cirrhosis findings, concern for hepatitis (remote history of IV drug use), pt denies alcohol use; hepatitis panel ordered. -U/S concerning for possible liver mass -unable to get paracentesis due to a non of fluid -patient afebrile, no abdominal pain, do not suspect SBP at this time -patient continues with wheeze, cough, and shortness of breath, but doing ok on RA. no formal diagnosis, but consistent with mild, acute COPD exacerbation, continue prednisone -patient was reported a recent vaginal discharge, foul odor, cottage cheese appearance, also with unprotected sexual intercourse recently -unfortunately unable to check for gonorrhea/chlamydia, patient already on Rocephin, will give 1gram azithromycin today VTE: SCDs for now, recent bleed, low platelets, cirrhosis Code: full Dispo: anticipate dc home in 24hrs pending further improvement. Still requiring more diuresis Time Spent Managing Pts Care (In Minutes): 35
[2020-05-27] MEDS: predniSONE 20 MG TAB PO SCH (20:43)
[2020-05-27] MEDS: ACETAMINOPHEN 500 MG TAB PO PRN (23:24)
[2020-05-28] MEDS: FUROSEMIDE 20 MG/ 2ML VIAL IV SCH ×4 (03:19→21:21)
[2020-05-28 06:24] LABS: Basophils % 0.4 % (0-1.3); Hematocrit 35.7 % (36.0-45.0); Lymphocytes % 9.2 % (15.3-44.8); MPV 8.2 fL (7.6-11.3); RBC Red Blood Cell Count 3.65 M/uL (3.86-4.86)
[2020-05-28 06:32] LABS: ALT/SGPT 48 U/L (12-78); AST/SGOT 84 U/L (15-37); Alkaline Phosphatase 166 U/L (45-117); BUN Blood Urea Nitrogen 11 mg/dL (7-18); Bicarbonate 34 mmol/L (21-32); Bilirubin Total 1.7 mg/dL (0.2-1.0); Glucose Level 160 mg/dL (74-106); Magnesium 2.1 mg/dL (1.8-2.4); Potassium 3.5 mmol/L (3.5-5.1); Protein, Total 7.2 g/dL (6.4-8.2); Sodium Level 141 mmol/L (136-145)
[2020-05-28] MEDS: AZITHROMYCIN 250 MG TAB PO SCH (06:36)
[2020-05-28 07:43] LABS: Blood Morphology Comment NOT SEEN (NOT SEEN); Platelet Estimate DECR; Platelets, Giant FEW; White Blood Cell Scan OK (OK)
--- NOTE | 2020-05-28 08:22 | ECHO ---
HEIGHT: 5 ft 7 in WEIGHT: 229 lb 9.6 oz DATE OF STUDY: 05/27/[address]: Gabriele Orellana MD 2-DIMENSIONAL: YES M.MODE: YES DOPPLER: YES COLOR FLOW: YES TDS: PORTABLE: DEFINITY: BUBBLE STUDY: DIAGNOSIS: EDEMA CARDIAC HISTORY: CATHERIZATION: SURGERY: PROSTHETIC VALVE: PACEMAKER: MEASUREMENTS (cm) DIASTOLIC (NORMALS) SYSTOLIC (NORMALS) IVSd 1.5 (0.6-1.2) LA Diam 3.6 (1.9-4.0) LVEF 56% LVIDd 3.7 (3.5-5.7) LVIDs 2.6 (2.0-3.5) %FS 29% LVPWd 1.4 (0.6-1.2) Ao Diam 2.3 (2.0-3.7) 2 DIMENSIONAL ASSESSMENT: RIGHT ATRIUM: NORMAL LEFT ATRIUM: NORMAL RIGHT VENTRICLE: NORMAL LEFT VENTRICLE: NORMAL TRICUSPID VALVE: NORMAL MITRAL VALVE: NORMAL PULMONIC VALVE: NORMAL AORTIC VALVE: NORMAL PERICARDIAL EFFUSION: NONE AORTIC ROOT: NORMAL LEFT VENTRICULAR WALL MOTION: NORMAL DOPPLER/COLOR FLOW: NORMAL COMMENTS: NORMAL LEFT VENTRICULAR EJECTION FRACTION OF 55-60%. DIASTOLIC DYSFUNCTION. MITRAL ANNULAR CALCIFICATION. TECHNOLOGIST: NAV SCHRADER
[2020-05-28] MEDS: CEFTRIAXONE/SWI 1gm 1 GM/10 ML SYR IV SCH (09:34)
[2020-05-28] MEDS: VITAMIN D 5,000 UNIT CAP PO SCH (09:35)
[2020-05-28] MEDS: SPIRONOLACTONE 25 MG TABLET PO SCH ×2 (09:35→21:21)
[2020-05-28] MEDS: CALCITROL 0.25 MCG CAP PO SCH (09:35)
[2020-05-28] MEDS: predniSONE 20 MG TAB PO SCH ×2 (09:35→21:21)
--- NOTE | 2020-05-28 10:17 | RAD REPORT ---
EXAM DESCRIPTION: RAD - Chest Pa And Lat (2 Views) - 05/28/2020 10:01 am CLINICAL HISTORY: worsening hypoxia COMPARISON: May 25 portable study, May 2011 single-view study, lung base images from CT study. TECHNIQUE: Frontal and lateral views of the chest were obtained. FINDINGS: The lungs are clear of a new mass or consolidation. Calcified granulomata noted. Patient h as chronic interstitial lung disease as a baseline. Pattern is not substantially different from the m ost recent comparison. Minimal interstitial edema or infiltrate could be masked by the chronic patter n. Heart size is normal and central vasculature is within normal limits. Posterior and left lateral costophrenic angle blunting are present. No acute bony finding noted. No aortic abnormality. IMPRESSION: Chronic interstitial lung disease not substantially different from comparison. Severity of chronic disease could mask early interstitial edema or infiltrate. No new mass or consolidation. Pleural scarring versus minimal pleural effusion. No pleural effusion was seen on the May 25 CT study.
--- NOTE | 2020-05-28 17:04 | P.PN ---
Subjective Date of Service: 05/28/20 Chief Complaint: Acute renal failure, ascites Subjective: Other (swelling improved, breathing slightly heavier today, needing O2 now. otherwise feeling better) Review of Systems 10-point ROS is otherwise unremarkable Physical Examination - Vital Signs Temperature: 97.9 F Blood Pressure: 167/71 Pulse: 66 Respirations: 19 Pulse Ox (%): 93 Assessment & Plan Physician Review Additional Text: Physical Exam Gen: NAD HEENT: mild scleral icterus CV: RRR, no murmur/rub Pulm: diminished air bilaterally, b/l expiratory wheeze, bibasilar rhonchi Abd: soft, distended, +ascites, nontender Ext: 1-2+ edema bilaterally to knees, no tenderness, no rash Neuro: AAOx3s Problem List: Oliguria, resolved UTI, cystitis Liver Cirrhosis with ascites Lower extremity edema Uterine/Vaginal bleed acute COPD exacerbation HTN -reported 2-3 weeks of significantly low urine output. vaughn placed for strict I/O's, nephrology consulted -urine output significantly improved, on Lasix and spironolactone -vaughn removed, voiding without issue -UA concern for UTI, urine culture with no growth so far, to continue Rocephin -new Ascites / cirrhosis findings, concern for hepatitis (remote history of IV drug use), pt denies alcohol use; hepatitis panel ordered. -U/S concerning for possible liver mass; -unable to get paracentesis due to a not enough fluid -patient continues with wheeze, cough, and shortness of breath. no formal diagnosis, but consistent with mild, acute COPD exacerbation, continue prednisone -cxr mostly unchanged VTE: SCDs for now, recent bleed, low platelets, cirrhosis Code: full Dispo: anticipate dc home in 24hrs pending further improvement. Still requiring more diuresis, requiring oxygen Time Spent Managing Pts Care (In Minutes): 35
[2020-05-28] MEDS ORDERED: POTASSIUM CL SA 10 MEQ TAB PO ONE (20:29)
[2020-05-29] MEDS: FUROSEMIDE 20 MG/ 2ML VIAL IV SCH ×2 (02:17→09:50)
[2020-05-29 07:31] LABS: BUN Blood Urea Nitrogen 12 mg/dL (7-18); Bicarbonate 36 mmol/L (21-32); Glucose Level 99 mg/dL (74-106); Potassium 3.6 mmol/L (3.5-5.1); Sodium Level 139 mmol/L (136-145)
[2020-05-29 07:33] LABS: ALT/SGPT 57 U/L (12-78); AST/SGOT 94 U/L (15-37); Albumin 2.1 g/dL (3.4-5.0); Alkaline Phosphatase 170 U/L (45-117); BUN Blood Urea Nitrogen 12 mg/dL (7-18); Bicarbonate 37 mmol/L (21-32); Bilirubin Total 2.1 mg/dL (0.2-1.0); Glucose Level 101 mg/dL (74-106); Potassium 3.5 mmol/L (3.5-5.1); Protein, Total 7.2 g/dL (6.4-8.2); Sodium Level 140 mmol/L (136-145)
[2020-05-29 08:40] VITALS: BP 145/65; TEMP 97.9
[2020-05-29 08:55] VITALS: O2SAT 91
[2020-05-29] MEDS: CEFTRIAXONE/SWI 1gm 1 GM/10 ML SYR IV SCH (09:49)
[2020-05-29] MEDS: SPIRONOLACTONE 25 MG TABLET PO SCH (09:49)
[2020-05-29] MEDS: CALCITROL 0.25 MCG CAP PO SCH (09:50)
[2020-05-29] MEDS: VITAMIN D 5,000 UNIT CAP PO SCH (09:50)
[2020-05-29] MEDS: predniSONE 20 MG TAB PO SCH (09:50)
--- NOTE | 2020-05-29 09:51 | P.DS ---
Admission Date: 05/25/20 Discharge Date: 05/29/20 Disposition: ROUTINE DISCHARGE Discharge Condition: GOOD Reason for Admission: Oliguria, new cirrhosis with ascites Consultations: Nephrology - Dr. Melgoza Procedures: CT Abd/Pelvis (05/25): New cirrhotic liver changes with splenomegaly, moderate ascites and multiple abdominal varices. Several small bowel loops show wall thickening that is probably a systemic response to the liver disease. Patient has focal air density in the deep vaginal vault near the cervix and a few punctate air densities within the uterus. Source of the air is uncertain. Patient may have incompetent cervix and this is physiologic air via the vaginal vault. No history to indicate an acute uterine infectious process. No evidence for cervical or uterine malignancy. Infrarenal abdominal aortic aneurysm to 3.1 cm in diameter. CXR (05/25): Chronic interstitial pattern similar to comparison. Calcified granulomas are stable. Overlying soft tissues cause costophrenic angle blunting. Heart and vasculature are normal. No measurable pleural effusion and no pneumothorax. No acute bony abnormality seen. No acute aortic findings suspected. Abd U/S (2): Significant cirrhotic pattern is seen involving the liver with several focal liver lesions present suspicious for liver masses or regenerating nodules. Recommend contrast-enhanced MR liver protocol for further evaluation. liver is diffusely heterogenous. Nodular liver contour is seen most compatible with liver cirrhosis. There is sonographic evidence of an irregular appearing fo jennie lesion in the region of the left hepatic lobe measuring 2.7 x 2.7 cm. Several additional vague lesions are present superimposed on the background chronic liver disease pattern. Hepatic and portal veins appear patent. Mild splenomegaly. Mild ascites. Pelvic U/S (2): Endometrium is mildly thickened for age measuring 8 mm without evidence of polyp or mass.Hysteroscopy may be of value if clinically indicated. Neither ovary was well seen likely due to a combination of atrophy and bowel gas shadowing CXR (05/28): Chronic interstitial lung disease not substantially different from comparison. Severity of chronic disease could mask early interstitial edema or infiltrate. No new mass or consolidation. Problem List: Oliguria, resolved Liver Cirrhosis with ascites Lower extremity edema Acute COPD exacerbation Chronic interstitial lung disease Uterine/Vaginal bleed HTN Brief History of Present Illness: 59yo F, PMH: HTN who presents to the ED the with few weeks of progressive worsening abdominal swelling, lower extremity swelling, and decreased urine output. The patient denies any other past medical history, but has not seen a physician in many years. The she also reports several months of some chest pressure when lying flat, causing her to sleep on her side/slightly at an incline. The she reports minimal urine output, states that she did not fill the urine specimen kept within 1 day. She denies any fevers, no foul smell/ordered her urine, no blood. The she also reports she had 2 weeks of vaginal/uterine bleeding approximately 3-4 weeks ago, requiring ~3 regular pads / day. Before that, her LMP was ~10yrs ago. Has been having "ovary pain" described as pelvic cramping pains similar to when she would get her periods. Workup in ED notable CXR: Negative for acute process. CT abdomen/pelvis: The new finding of cirrhotic liver changes with splenomegaly, moderate ascites, multiple abdominal varices. Several small bowel loops show wall thickening no surprise systemic response of liver disease. Focal air density in the vaginal vault and cervix and a few punctate care densities within the uterus. Hospital Course: Oliguria, resolved, Possible cystitis Liver Cirrhosis with ascites Lower extremity edema -UA suggestive of UTI, patient received 4 days of IV Rocephin, urine culture without growth and she was not discharged home with antibiotics. -Hep panel ordered (send out), will need to be followed up as outpatient. Pt reported IV drug use in her 20s. She was scheduled to have diagnostic paracentesis, however at time of procedure patient no longer had enough fluid for procedure to be done. -She diuresed well with lasix and spironolactone (>7L UOP). Nephrology was consulted. She was discharged on 80 mg b.i.d. Lasix and 50 mg spironolactone b.i.d. She was advised to follow up with PCP, GI, and Renal. -given cirrhosis and lung findings, if hepatitis panel negative, may have autoimmune hepatitis/ILD Acute COPD exacerbation (undiagnosed COPD) Chronic insterstitial lung findings on CXR -patient with wheeze /rhonchi on exam, treated with prednisone and albuterol with some improvement. SpO2: 91-95% on room air -counselled extensively on tobacco cessation, >30minutes, patient did not want any medications at this time -advised f/u with pulmonology - reported had seen Dr. Montejo briefly many years ago -discharged with prednisone 20mg BID x 3 more days, and an albuterol inhaler HTN -improved with diuresis, down to 140/60s on day of discharge Uterine/Vaginal bleed Had 2 weeks of bleeding that finished 2 weeks prior to admission. Pelvic ultrasound obtained and noted thickening of endometrial stripe. Advised to f/u with OBGYN Vital Signs/Physical Exam: Physical Exam Gen: NAD, AAOx3 HEENT: mild scleral icterus CV: RRR, no murmur/rub Pulm: diminished air bilaterally, b/l expiratory wheeze, +rhonchi Abd: soft, distended, nontender Ext: 1-2+ edema bilaterally to knees, no tenderness, no rash Temp Pulse Resp BP Pulse Ox 97.9 F 67 16 145/65 H 89 L 05/29/20 08:00 05/29/20 08:00 05/29/20 08:00 05/29/20 08:00 05/29/20 08:00 Laboratory Data at Discharge: WBC 11.20 K/uL (4.3-10.9) H D 05/28/20 05:40 Hgb 12.1 g/dL (12.0-15.0) 05/28/20 05:40 Hct 35.7 % (36.0-45.0) L 05/28/20 05:40 Plt Count 100 K/uL (152-406) L 05/28/20 05:40 PT 20.0 SECONDS (9.5-12.5) H 05/26/20 05:14 INR 1.69 05/26/20 05:14 Sodium 139 mmol/L (136-145) 05/29/20 07:05 Sodium 140 mmol/L (136-145) 05/29/20 07:05 Potassium 3.5 mmol/L (3.5-5.1) 05/29/20 07:05 Potassium 3.6 mmol/L (3.5-5.1) 05/29/20 07:05 BUN 12 mg/dL (7-18) 05/29/20 07:05 BUN 12 mg/dL (7-18) 05/29/20 07:05 Creatinine 0.44 mg/dL (0.55-1.3) L 05/29/20 07:05 Creatinine 0.44 mg/dL (0.55-1.3) L 05/29/20 07:05 Glucose 99 mg/dL (74-106) 05/29/20 07:05 Glucose 101 mg/dL (74-106) 05/29/20 07:05 Uric Acid 4.3 mg/dL (2.6-6.0) 05/27/20 05:47 Phosphorus 3.5 mg/dL (2.5-4.9) 05/26/20 05:14 Magnesium 2.0 mg/dL (1.8-2.4) 05/29/20 07:05 Total Bilirubin 2.1 mg/dL (0.2-1.0) H 05/29/20 07:05 AST 94 U/L (15-37) H 05/29/20 07:05 ALT 57 U/L (12-78) 05/29/20 07:05 Alkaline Phosphatase 170 U/L (45-117) H 05/29/20 07:05 Triglycerides 80 mg/dL (<150) 05/26/20 05:14 Cholesterol 148 mg/dL (<200) 05/26/20 05:14 HDL Cholesterol 26 mg/dL (40-60) L 05/26/20 05:14 Cholesterol/HDL Ratio 5.69 05/26/20 05:14 Lipase 98 U/L (73-393) 05/25/20 14:30 Home Medications: Albuterol Inhaler [Ventolin Inhaler*] 2 puff IH Q6H PRN #1 hfa.aer.ad 05/29/20 Furosemide [Lasix] 80 mg PO BID 30 Days #60 tablet 05/29/20 Spironolactone 50 mg PO BID 30 Days #60 tablet 05/29/20 predniSONE [Prednisone*] 20 mg PO BID 3 Days #6 tab 05/29/20 New Medications: Furosemide [Lasix] 80 mg PO BID 30 Days #60 tablet predniSONE [Prednisone*] 20 mg PO BID 3 Days #6 tab Spironolactone 50 mg PO BID 30 Days #60 tablet Albuterol Inhaler [Ventolin Inhaler*] 2 puff IH Q6H PRN #1 hfa.aer.ad PRN Reason: Shortness Of Breath Physician Discharge Instructions: You were found to have new onset liver cirrhosis with fluid in your abdomen (ascites) and legs. There was a lesion on your liver measuring 2.7 x 2.7cm seen on ultrasound. You will need to follow up with your PCP / GI doctor, to consider MRI liver protocol for further evaluation. Follow up with OBGYN regarding your recent uterine/vaginal bleeding. It is recommended you follow up with Pulmonology as well (Dr. Montejo) for possible COPD. You are discharged with furosemide (Lasix) and Spironolactone - please take these together, twice a day. Do not take one without the other. You can call the nephrology office (Dr. Melgoza's) to see if they can schedule you for a follow up appointment. Diet: Low sodium Activity: Ad jf Followup: Frank Montejo MD [ACTIVE - CAN ADMIT] - Flip Melgoza DO [ACTIVE - CAN ADMIT] - NONE,NONE [Primary Care Provider] - Time spent managing pt's care (in minutes): 45
[2020-05-29 20:27] LABS: HBsAG Nonreactive (Nonreactive)
[2020-05-30 19:13] LABS: Hep C Virus RNA (PCR)log 5.88 log IU/mL
== END 2020-05-29 10:57 | disposition home or self-care (01) | DRG 433 ==
LOC: ER 10:47 → ERHOLD 17:28 → 2ND 21:49
PROVIDERS: ADMIT Hospitalist; ATTEND Hospitalist
DX: K74.60 Unspecified cirrhosis of liver (principal); N17.9 Acute kidney failure, unspecified; R18.8 Other ascites; E44.0 Moderate protein-calorie malnutrition; N39.0 Urinary tract infection, site not specified; J44.1 Chronic obstructive pulmonary disease with (acute) exacerbation; J84.9 Interstitial pulmonary disease, unspecified; F17.210 Nicotine dependence, cigarettes, uncomplicated; E87.6 Hypokalemia; I10 Essential (primary) hypertension; E83.51 Hypocalcemia; N93.9 Abnormal uterine and vaginal bleeding, unspecified; R80.9 Proteinuria, unspecified; R34 Anuria and oliguria; R31.9 Hematuria, unspecified; Z68.35 Body mass index [BMI] 35.0-35.9, adult; Z79.52 Long term (current) use of systemic steroids; Z79.899 Other long term (current) drug therapy; Z20.822 Contact with and (suspected) exposure to COVID-19
CPT/HCPCS: 36415; 71045; 71046; 74176; 76700; 76856; 80048; 80053; 80061; 80074; 80076; 81001; 81003; 81015; 82140; 83036; 83690; 83735; 83880; 84100; 84300; 84439; 84443; 84484; 84550; 85025; 85027; 85610; 87086; 87088; 87522; 93005; 93306; 94640; 94760; 99285; J0696; J1940; J2920; J7512; U0003